=== PATIENT | male | born 1960 | race Caucasian/White ===

== ENCOUNTER 2021-12-24 13:23 | Outpatient (CLI) | payer OTHER, SELFPAY ==
[2021-12-24 21:51] LABS: Creatinine Urine 283.4 mg/dL
[2021-12-24 21:55] LABS: Microalbumin Creatinine Ratio 10 mg/g (0-30); Microalbumin Urine 5 mg/dL
[2021-12-24 23:11] LABS: Albumin* 4.6 g/dL (3.3-5.0); Chloride* 92 mmol/L (96-114)
[2021-12-24 23:12] LABS: Potassium* 4.2 mmol/L (3.6-5.1); Sodium* 134 mmol/L (135-149)
[2021-12-24 23:14] LABS: Bilirubin Total* 1.6 mg/dL (0.1-1.5); Carbon Dioxide* 27 mmol/L (20-32); Cholesterol* 202 mg/dL (90-199); Creatinine* 1.3 mg/dL (0.5-1.5); Estimated Glomerular Filt Rate 63 ml/min; Total Protein* 7.5 g/dL (6.0-8.3)
[2021-12-24 23:15] LABS: Alanine Aminotransferase* 58 U/L (4-50); Alkaline Phosphatase* 105 U/L (40-150); Aspartate Amino Transferase* 57 U/L (12-35); Blood Urea Nitrogen* 22 mg/dL (7-30); Calcium* 9.7 mg/dL (8.4-10.6); Glucose* 221 mg/dL (60-115); HDL Cholesterol* 50 mg/dL (>=40); LDL Cholesterol Calculated 84 mg/dL (<100); Triglycerides* 339 mg/dL (40-149)
[2021-12-24 23:46] LABS: PSA Screen* 1.87 ng/mL (0.10-4.00)
[2021-12-28 16:02] LABS: Sex Hormone Binding Globulin 23 nmol/L (19-76); Testosterone, Adult Male 265 ng/dL (300-890); Testosterone, Free Calculation 56 pg/mL (47-244); Testosterone, Percentage Free 2.1 % (1.6-2.9)
== END 2021-12-24 13:24 | disposition home or self-care (01) ==
PROVIDERS: PCP Family Medicine; Visit Provider Family Medicine
DX: Z00.00 Encounter for general adult medical examination without abnormal findings (principal); E78.00 Pure hypercholesterolemia, unspecified; I10 Essential (primary) hypertension; R79.89 Other specified abnormal findings of blood chemistry; E11.9 Type 2 diabetes mellitus without complications; N52.9 Male erectile dysfunction, unspecified
CPT/HCPCS: 80053; 80061; 82043; 82570; 84153; 84270; 84402; 84403

== ENCOUNTER 2022-04-20 12:06 | Outpatient (CLI) | payer OTHER, SELFPAY ==
[2022-04-20 21:59] LABS: Albumin* 4.8 g/dL (3.3-5.0); Chloride* 101 mmol/L (96-114); Potassium* 4.2 mmol/L (3.6-5.1); Sodium* 140 mmol/L (135-149)
[2022-04-20 22:02] LABS: Alanine Aminotransferase* 105 U/L (4-50); Alkaline Phosphatase* 91 U/L (40-150); Aspartate Amino Transferase* 99 U/L (12-35); Bilirubin Total* 0.7 mg/dL (0.1-1.5); Blood Urea Nitrogen* 9 mg/dL (7-30); Carbon Dioxide* 28 mmol/L (20-32); Estimated Glomerular Filt Rate 86 ml/min; Glucose* 137 mg/dL (60-115); Total Protein* 7.3 g/dL (6.0-8.3)
[2022-04-20 22:03] LABS: Calcium* 9.6 mg/dL (8.4-10.6)
[2022-04-22 17:34] LABS: Sex Hormone Binding Globulin 23 nmol/L (19-76); Testosterone, Adult Male 615 ng/dL (300-720); Testosterone, Free Calculation 142 pg/mL (47-244); Testosterone, Percentage Free 2.3 % (1.6-2.9)
== END 2022-04-20 12:07 | disposition home or self-care (01) ==
PROVIDERS: PCP Family Medicine; Visit Provider Family Medicine
DX: R79.89 Other specified abnormal findings of blood chemistry (principal); D64.9 Anemia, unspecified; E11.9 Type 2 diabetes mellitus without complications
CPT/HCPCS: 80053; 84270; 84402; 84403